=== PATIENT | female | born 1995 | race Hispanic/Latino ===

== ENCOUNTER 2021-08-23 21:44 | Emergency (ER) | payer BC | END 2021-08-23 22:14 | disposition home or self-care (01) | LOC: EDSEX 21:44 → CSHERS 21:44 | DX: S61.412A Laceration without foreign body of left hand, initial encounter (principal); L03.114 Cellulitis of left upper limb; F17.210 Nicotine dependence, cigarettes, uncomplicated; W55.03XA Scratched by cat, initial encounter | CPT/HCPCS: 99282 ==

== ENCOUNTER 2022-04-08 19:36 | Emergency (ER) | payer BC | END 2022-04-08 21:07 | disposition home or self-care (01) | LOC: CSHERS 19:36 | DX: M79.671 Pain in right foot (principal) ==